=== PATIENT | female | born 1990 | race Caucasian/White ===

== ENCOUNTER 2016-11-01 07:00 | Inpatient (IN) | payer BC, MEDICAID, OTHER ==
[~2016-11-01] VITALS: Ht 163.8 cm; Wt 117.9 kg
[2016-11-01] VITALS (47 sets, daily range): BP systolic 99–146; BP diastolic 53–77
[~2016-11-01 07:00] MED LIST: PNV1TABL9 PO
[2016-11-01] MEDS ORDERED: MINERAL OIL CONCENTRATE 99.9% 15 ML UDC TOP PRN (07:30)
[2016-11-01] MEDS ORDERED: TERBUTALINE INJ 1 MG/ML (BRETHINE) AMP SC PRN (07:30)
[2016-11-01] MEDS ORDERED: MISOPROSTOL 100 MCG (CYTOTEC) TAB PO NR (07:30)
[2016-11-01 08:30] LABS: BASOPHILS % (AUTO) 0 % (0-10); EOSINOPHILS # (AUTO) 0.2 10^3/uL (0.0-0.3); EOSINOPHILS % (AUTO) 1 % (0-10); LYMPHOCYTES # (AUTO) 2.6 X 10^3 (1.0-4.0); LYMPHOCYTES % (AUTO) 21 % (12-44); MEAN CORPUSCULAR HEMOGLOBIN 29 PG (25-34); MEAN CORPUSCULAR HGB CONC 33 G/DL (32-36); MEAN CORPUSCULAR VOLUME 86 FL (80-99); MEAN PLATELET VOLUME 11.9 FL (7.4-10.4); MONOCYTES % (AUTO) 8 % (0-12); NEUTROPHILS # (AUTO) 8.6 X 10^3 (1.8-7.8); NEUTROPHILS % (AUTO) 69 % (42-75); PLATELET COUNT 217 10^3/uL (130-400); RED BLOOD COUNT 4.24 10^6/uL (4.35-5.85); WHITE BLOOD COUNT 12.4 10^3/uL (4.3-11.0)
[2016-11-01] MEDS: D5 LR IV SOLUTION 1,000 ML IV SCH (08:36)
[2016-11-01] MEDS ORDERED: FLU TRIvalent (5 YOA+) 2016-17 (AFLURIA) 0.5 ML IM ONE (09:15)
[2016-11-01 09:16] LABS: BILIRUBIN,URINE NEGATIVE (NEGATIVE); KETONES,URINE NEGATIVE (NEGATIVE); LEUKOCYTE ESTERASE ,URINE 3+ (NEGATIVE); NITRITE,URINE NEGATIVE (NEGATIVE); PH,URINE 6.5 (5-9); PROTEIN,URINE NEGATIVE (NEGATIVE); UROBILINOGEN,URINE NORMAL (NORMAL)
[2016-11-01 09:30] LABS: SQUAMOUS EPITHELIAL CELL,UR 25-50 /HPF; WBC,URINE 50-100 /HPF
[2016-11-01] MEDS ORDERED: ACYC800T PO (10:41)
[2016-11-01] MEDS ORDERED: OXYTOCIN/NORMAL SALINE 500 ML IV SCH (12:44)
--- NOTE | 2016-11-01 12:45 | Progress Note-Standard ---
Standard Progress Note Progress Notes/Assess & Plan Progress/Assessment & Plan AROM clear /-2 well being reassuring Irregular contractions. Start TITI Orellana DO Nov 01, 2016 12:45
[2016-11-01] MEDS ORDERED: LIDOCAINE/EPI 1%-1:200,000 (XYLOCAINE) 30 ML VIAL ONE (13:05)
[2016-11-01] MEDS: fentaNYL INJECTION 100 MCG/2 ML AMP IVP PRN ×2 (13:13→16:24)
[2016-11-01] MEDS ORDERED: CATHETER FLUSH 10 ML SYR IV SCH (14:00)
[2016-11-01] MEDS ORDERED: SUFENTA 0.6MCG/ML BUPIVA 0.125 100 ML ONE (16:30)
[2016-11-01] MEDS ORDERED: LACTATED RINGERS 1,000 ML IV ONE ×2 (16:30→17:45)
[2016-11-01] MEDS ORDERED: diphenhydrAMINE 50 MG/ML INJ (BENADRYL) IV PRN (17:45)
[2016-11-01] MEDS ORDERED: fentaNYL INJECTION 100 MCG/2 ML AMP INJ ONE (17:45)
[2016-11-01] MEDS ORDERED: NALOXONE 0.4 MG/ML 1 ML (NARCAN) VIAL IV PRN ×2 (17:45)
[2016-11-01] MEDS ORDERED: EPIDURAL (SUFENTA 0.6MCG/ML BUPIVA 0.125%) 100 ML BAG EPI PRN (17:45)
[2016-11-01] MEDS ORDERED: METOCLOPRAMIDE INJ 10 MG/2 ML (REGLAN) IV PRN (17:45)
[2016-11-01] MEDS ORDERED: ONDANSETRON 4 MG/2 ML (SDV) Z0FRAN IV PRN (17:45)
[2016-11-01] MEDS ORDERED: ONDANSETRON 4 MG/2 ML (SDV) Z0FRAN IVP ONE (18:00)
[2016-11-01] MEDS ORDERED: ceFAZolin 2 GM/50 ML NS 50 ML IV ONE (23:17)
[2016-11-01] MEDS ORDERED: MISOPROSTOL 200 MCG (CYTOTEC) TABLET ONE ×2 (23:26→23:39)
[2016-11-01 23:34] LABS: BASOPHILS % (AUTO) 0 % (0-10); EOSINOPHILS % (AUTO) 0 % (0-10); LYMPHOCYTES # (AUTO) 2.3 X 10^3 (1.0-4.0); LYMPHOCYTES % (AUTO) 15 % (12-44); MEAN CORPUSCULAR HEMOGLOBIN 29 PG (25-34); MEAN CORPUSCULAR HGB CONC 33 G/DL (32-36); MEAN CORPUSCULAR VOLUME 87 FL (80-99); MEAN PLATELET VOLUME 11.6 FL (7.4-10.4); MONOCYTES # (AUTO) 1.2 X 10^3 (0.0-1.0); MONOCYTES % (AUTO) 8 % (0-12); NEUTROPHILS # (AUTO) 11.8 X 10^3 (1.8-7.8); NEUTROPHILS % (AUTO) 77 % (42-75); PLATELET COUNT 224 10^3/uL (130-400); RED BLOOD COUNT 3.69 10^6/uL (4.35-5.85); RED CELL DISTRIBUTION WIDTH 15.1 % (10.0-14.5); WHITE BLOOD COUNT 15.3 10^3/uL (4.3-11.0)
[2016-11-01] MEDS ORDERED: fentaNYL INJECTION 100 MCG/2 ML AMP ONE (23:35)
[2016-11-01] MEDS ORDERED: proPOfol 200 MG/20 ML (DIPRIVAN) VIAL IV ONE (23:35)
[2016-11-01] MEDS ORDERED: LIDOCAINE PF 2% 10 ML (XYLOCAINE) AMP ONE (23:35)
[2016-11-01] MEDS ORDERED: SUCCINYLCHOLINE INJ 100 MG/5 ML SYR ONE (23:35)
[2016-11-01] MEDS ORDERED: SEVOFLURANE (ULTANE) 15 ML INHAL SOLN ONE (23:35)
[2016-11-01] MEDS ORDERED: MIDAZOLAM 2 MG/2 ML (VERSED) VIAL ONE (23:36)
[2016-11-01] MEDS ORDERED: NS IV 1000 ML 1,000 ML ONE (23:46)
[2016-11-01] MEDS ORDERED: PHENYLEPHRINE 100 MCG/ML 10 ML (ANESTHESIA) SYR ONE (23:54)
[2016-11-02] VITALS (13 sets, daily range): BP systolic 103–128; BP diastolic 53–72
[2016-11-02] MEDS ORDERED: OXYTOCIN/NORMAL SALINE 500 ML IV SCH (00:21)
--- NOTE | 2016-11-02 00:24 | OB Labor & Delivery Record ---
Vag Delivery Note Vag Delivery Note Date of Delivery: 11/02/16 Preoperative Diagnosis: Pilar Sylvester is a (26 /Para 3/2 with history of delivery, advanced cervical dilation and distance from hospital. She was induced at 39 weeks due to above. Postoperative Diagnosis: Same Surgeon: TITI WILKINSON Anesthesia: epidurla Delivery Type: vaginal Findings: Viable male, apgars 7/9 BW pending Lacerations: Intact placenta with 3 vessel cord. No nuchal cord, body cord or shoulder dystocia Estimated Blood Loss: 750 ml Complications: uterine inversion Condition: to OR Description of Procedure: The patient was admitted for induction of labor due to advanced cervical dilation and distance of greater than 45 minutes from the hospital, with an additional history of rapid deliveries.. She was admitted and informed consent was obtained. Her labor course was remarkable for a ROM and Pitocin. She progressed to complete dilatation and began to push. She was then set up for delivery. The 's head was delivered atraumatically in the OA position. The shoulders and remainder of the infant's body were then delivered without difficulty. Upon delivery, the head was held below the level of the perineum and the mouth and nares were bulb suctioned. The cord was doubly clamped and cut and the infant was handed off to the pediatric staff. The placenta did not deliver within the first 15 minutes. I did not do any daily maneuver, just gentle traction on the cord. I noted that the placenta was not and then all of a sudden noted what appeared to be a uterine mass or placental mass. With palpation I determined that it was the uterus and the uterus was inverting. At this point I attempted to place the uterus back in the proper position but was unable to do so. The patient was given 4 g slow IV push of magnesium sulfate to help relax the uterus. I then attempted to replace the uterus again and the patient had nausea and vomiting and at this point had a gush of blood and the placenta detached. There was large amount of blood on the floor. At this point it was decided to go to the OR for replacement of the uterine inversion. She was typed and crossed 2 units. She had approximately 750 mL of blood loss or more in the room. The procedure is dictated under separate cover. The baby was stable and taken to the nursery. As we were taking her to the OR the patient stated "I think this is what happens to me last time. We have previously discussed this with a previous , miscarriage, but did not have the records and she was not really sure what happened. But her stated that this was very similar to what happened before. Consents were signed and she was taken to the operating room. Vitals - Labs Vital Signs - I&O Vital Signs Date Time Temp Pulse Resp B/P Pulse Ox O2 Delivery O2 Flow Rate FiO2 11/01/16 19:00 65 18 124/67 98 Room Air 11/01/16 18:45 67 18 122/61 95 Room Air 11/01/16 18:30 69 18 117/62 95 Room Air 11/01/16 18:15 68 18 114/59 95 Room Air 11/01/16 18:00 80 18 114/53 99 Room Air 11/01/16 17:45 111 18 113/59 100 Room Air 11/01/16 17:40 87 18 106/57 99 Room Air 11/01/16 17:35 78 18 99/61 100 Room Air 11/01/16 17:30 72 18 100 Room Air 11/01/16 17:20 77 18 122/58 100 Room Air 11/01/16 17:15 83 18 137/65 100 Room Air 11/01/16 17:10 90 18 137/65 100 Room Air 11/01/16 17:00 18 Room Air 11/01/16 16:45 77 18 137/60 Room Air 11/01/16 16:30 86 18 138/71 Room Air 11/01/16 16:15 86 18 136/72 Room Air 11/01/16 16:00 80 18 127/69 Room Air 11/01/16 15:45 77 18 130/71 Room Air 11/01/16 15:30 75 18 142/67 Room Air 11/01/16 15:15 75 18 121/61 Room Air 11/01/16 15:00 98.4 75 18 122/63 Room Air 11/01/16 14:45 75 18 135/69 Room Air 11/01/16 14:30 75 18 112/68 Room Air 11/01/16 14:15 77 18 111/69 Room Air 11/01/16 13:45 80 18 116/62 Room Air 11/01/16 13:30 78 118/63 Room Air 11/01/16 12:40 98.3 78 18 115/63 Room Air 11/01/16 11:35 80 18 133/77 Room Air 11/01/16 10:35 78 18 127/77 Room Air 11/01/16 10:10 98.9 11/01/16 09:35 70 18 120/71 Room Air 11/01/16 08:35 98.9 81 18 130/75 Room Air 11/01/16 07:40 93 18 112/66 Room Air Labs Laboratory Tests 11/01/16 07:45: Urine Bacteria MODERATEH, Urine Bilirubin NEGATIVE, Urine Casts NONE, Urine Clarity CLEAR, Urine Color YELLOW, Urine Crystals NONE, Urine Culture Indicated NO, Urine Glucose (UA) NEGATIVE, Urine Ketones NEGATIVE, Urine Leukocyte Esterase 3+H, Urine Mucus NEGATIVE, Urine Nitrite NEGATIVE, Urine Protein NEGATIVE, Urine RBC NONE, Urine RBC (Auto) 1+H, Urine Specific [place] 1.015L, Urine Squamous Epithelial Cells 25-50H, Urine Urobilinogen NORMAL, Urine WBC 50- 100H, Urine pH 6.5 11/01/16 08:05: Basophils # (Auto) 0.0, Basophils (%) (Auto) 0, Eosinophils # (Auto) 0.2, Eosinophils (%) (Auto) 1, Hematocrit 36, Hemoglobin 12.1, Lymphocytes # (Auto) 2.6, Lymphocytes (%) (Auto) 21, Mean Corpuscular Hemoglobin 29, Mean Corpuscular Hemoglobin Concent 33, Mean Corpuscular Volume 86, Mean Platelet Volume 11.9H, Monocytes # (Auto) 1.0, Monocytes (%) (Auto) 8, Neutrophils # ( Auto) 8.6H, Neutrophils (%) (Auto) 69, Platelet Count 217, Red Blood Count 4.24L , Red Cell Distribution Width 15.0H, White Blood Count 12.4H 11/01/16 23:20: Basophils # (Auto) 0.0, Basophils (%) (Auto) 0, Eosinophils # (Auto) 0.0, Eosinophils (%) (Auto) 0, Hematocrit 32L, Hemoglobin 10.5L, Lymphocytes # (Auto ) 2.3, Lymphocytes (%) (Auto) 15, Mean Corpuscular Hemoglobin 29, Mean Corpuscular Hemoglobin Concent 33, Mean Corpuscular Volume 87, Mean Platelet Volume 11.6H, Monocytes # (Auto) 1.2H, Monocytes (%) (Auto) 8, Neutrophils # ( Auto) 11.8H, Neutrophils (%) (Auto) 77H, Platelet Count 224, Red Blood Count 3.69L, Red Cell Distribution Width 15.1H, White Blood Count 15.3H TITI WILKINSON DO Nov 02, 2016 00:24
--- NOTE | 2016-11-02 00:25 | Operative Report ---
Operative Report Date of Procedure/Surgery Nov 02, 2016 Post-Operative Diagnosis uterine inversion Procedure Performed Name of Procedure: replacement of uterine inversion Description of Procedure Anesthesia Type: General Estimated blood loss (mL): 1750 Indications uterine inversion, post hemorrhage Procedure Patient had delivery complicated by uterine inversion. I attempted to leave the placenta intact, but the patient had emesis and the placenta became detached. She also had large gush of blood over the floor (approximately 500 ml +). I could not easily replaced the placenta. I had her given 4 grams of magnesium IV to help to relax the uterus, but this did not help with the replacement of the uterus so we decided to go to the operating room. The patient was given preoperative antibiotics and then taken to the operating room where she was placed under general anesthesia. She was then prepped and draped in the usual sterile fashion in the dorsal lithotomy position. A Toney catheter was placed in the bladder. When she was completely relaxed and the blood was cleaned from the vault, I was then able to gently put pressure on the uterine fundus and then eventually was able to reduce the inversion. Initially this was difficult because there was some tightening around my hands but I was able to do this successfully. The uterus relaxed and allowed the inversion to occur. There was excessive blood loss, but her vitals were stable did not get blood during the procedure. We did place 800 g of rectal Cytotec. The Toney was kept in the bladder and she was taken to the recovery room in stable condition. Allergies and Home Medications Allergies Coded Allergies: No Known Drug Allergies (Unverified , 12/01/14) Home Medications Acyclovir 800 Mg Tablet 1,000 MG PO DAILY (Reported) Ferrous Sulfate 325 Mg Tablet #120 325 MG PO BID WITH MEALS Prescribed by: TITI WILKINSON on 11/03/16921 Hydrocodone/Acetaminophen 1 Each Tablet #15 1-2 TAB PO Q4H PRN PRN MODERATE TO SEVERE PAIN Prescribed by: TITI WILKINSON on 11/03/16921 Ibuprofen 600 Mg Tablet #40 600 MG PO Q6H Prescribed by: TITI WILKINSON on 11/03/16921 Pnv Cmb#21/Iron/Folic Acid 1 Each Tablet #30 1 EACH PO DAILY Prescribed by: SUDHA TREVIÑO on 12/04/142107 TITI WILKINSON DO Nov 02, 2016 00:25
[2016-11-02] MEDS ORDERED: KETOROLAC 30 MG/ML VIAL IVP SCH (00:30)
[2016-11-02] MEDS ORDERED: HYDROcodone/APAP 5 MG/325 MG (LORTAB) TAB PO PRN (00:30)
[2016-11-02] MEDS ORDERED: BENZOCAINE/MENTHOL (DERMOPLAST) 56 ML CAN TP PRN (00:30)
[2016-11-02] MEDS ORDERED: WITCH HAZEL(TUCKS) 40 EA JAR TOP PRN (00:30)
[2016-11-02] MEDS ORDERED: TETANUS,DIPTH,PERTUSS P/F (BOOSTRIX) 0.5 ML VIAL IM ONE (00:30)
[2016-11-02] MEDS ORDERED: MEASLES,MUMPS,RUBELLA 1 EA INJ SQ ONE (00:30)
[2016-11-02] MEDS ORDERED: ISOFLURANE (FORANE) 15 ML/15 MIN INHALATION ONE (00:31)
[2016-11-02 00:47] LABS: MEAN PLATELET VOLUME 11.4 FL (7.4-10.4); RED BLOOD COUNT 3.07 10^6/uL (4.35-5.85); RED CELL DISTRIBUTION WIDTH 14.9 % (10.0-14.5)
[2016-11-02 00:52] LABS: WHITE BLOOD COUNT 30.1 10^3/uL (4.3-11.0)
[2016-11-02] MEDS: IBUPROFEN 600 MG (MOTRIN) TAB PO SCH ×3 (01:37→18:00)
[2016-11-02] MEDS: D5 LR IV SOLUTION 1,000 ML IV SCH (05:10)
[2016-11-02] MEDS ORDERED: CATHETER FLUSH 10 ML SYR IV SCH (06:00)
[2016-11-02 06:17] LABS: BASOPHILS % (AUTO) 0 % (0-10); EOSINOPHILS % (AUTO) 0 % (0-10); LYMPHOCYTES # (AUTO) 3.2 X 10^3 (1.0-4.0); LYMPHOCYTES % (AUTO) 13 % (12-44); MEAN CORPUSCULAR HEMOGLOBIN 29 PG (25-34); MEAN CORPUSCULAR HGB CONC 33 G/DL (32-36); MEAN CORPUSCULAR VOLUME 88 FL (80-99); MEAN PLATELET VOLUME 11.9 FL (7.4-10.4); MONOCYTES # (AUTO) 1.3 X 10^3 (0.0-1.0); MONOCYTES % (AUTO) 5 % (0-12); NEUTROPHILS # (AUTO) 20.1 X 10^3 (1.8-7.8); NEUTROPHILS % (AUTO) 82 % (42-75); PLATELET COUNT 191 10^3/uL (130-400); RED BLOOD COUNT 2.63 10^6/uL (4.35-5.85); RED CELL DISTRIBUTION WIDTH 14.8 % (10.0-14.5); WHITE BLOOD COUNT 24.6 10^3/uL (4.3-11.0)
--- NOTE | 2016-11-02 07:36 | Progress Note-Pre Operative ---
Pre-Operative Progress Note H&P Reviewed The H&P was reviewed, patient examined and no changes noted. Date H&P Reviewed: Nov 02, 2016 Time H&P Reviewed: 07:30 Pre-Operative Diagnosis: Missed Ab TITI WILKINSON DO Nov 02, 2016 07:36
[2016-11-02] MEDS: DOCUSATE SODIUM 100 MG (COLACE) CAP PO SCH (08:52)
[2016-11-02] MEDS ORDERED: FERROUS SULF 325 MG (IRON) TAB PO SCH (09:00)
[2016-11-02] MEDS: PRENATAL VITAMIN 1 EA TAB PO SCH (09:05)
--- NOTE | 2016-11-02 09:48 | Postpartum Progress Note ---
Note Note Day # 1 s/p and replacement of uterine inversion. PPH Subjective: Patient is without complaints. Ambulating, voiding. Tolerating a regular diet without nausea or vomiting. Normal lochia. Pain is well controlled with oral pain medications. Objective: Laboratory Tests Test 11/01/16 23:20 11/02/16 00:40 11/02/16 05:50 Range/Units Basophils # (Auto) 0.0 0.0 0.0-0.1 10^3/uL Basophils (%) (Auto) 0 0 0-10 % Eosinophils # (Auto) 0.0 0.0 0.0-0.3 10^3/uL Eosinophils (%) (Auto) 0 0 0-10 % Hematocrit 32 L 27 L 23 L 35-52 % Hemoglobin 10.5 L 8.6 L 7.5 L 11.5-16.0 G/DL Lymphocytes # (Auto) 2.3 3.2 1.0-4.0 X 10^3 Lymphocytes (%) (Auto) 15 13 12-44 % Mean Corpuscular Hemoglobin 29 28 29 25-34 PG Mean Corpuscular Hemoglobin Concent 33 32 33 32-36 G/DL Mean Corpuscular Volume 87 88 88 80-99 FL Mean Platelet Volume 11.6 H 11.4 H 11.9 H 7.4-10.4 FL Monocytes # (Auto) 1.2 H 1.3 H 0.0-1.0 X 10^3 Monocytes (%) (Auto) 8 5 0-12 % Neutrophils # (Auto) 11.8 H 20.1 H 1.8-7.8 X 10^3 Neutrophils (%) (Auto) 77 H 82 H 42-75 % Platelet Count 224 215 191 130-400 10^3/uL Red Blood Count 3.69 L 3.07 L 2.63 L 4.35-5.85 10^6/uL Red Cell Distribution Width 15.1 H 14.9 H 14.8 H 10.0-14.5 % White Blood Count 15.3 H 30.1 *H 24.6 H 4.3-11.0 10^3/uL Vital Signs 11/01/16 11/02/16 23:31 08:54 Temp 100.3 Pulse 90 Resp 18 B/P 109/72 Pulse Ox 99 O2 Delivery Room Air O2 Flow Rate 10.00 Physical Exam: General - Alert and oriented, no apparent distress Abdomen - Soft, appropriately tender to palpation, non-distended, fundus firm at umbilicus Extremities - no edema, negative Chuy's bilaterally Assessment: 1. post- day # 1, status post spontaneous vaginal delivery. Recovering well, hemodynamically stable 2. Uterine inversion s/p OR replacement 3. Post hemorrhage due to 2. 4. Acute blood loss anemia [] Plan: Routine care. Encourage breast feeding. Encourage ambulation. Ferrous sulfate supplementation. Patient is currently hemodynamically stable that she had a large drop in hemoglobin. We will continue to watch her vitals and determine if transfusion is necessary. Vitals - Labs Vital Signs - I&O Vital Signs Date Time Temp Pulse Resp B/P Pulse Ox O2 Delivery O2 Flow Rate FiO2 11/02/16 08:54 100.3 90 18 109/72 99 Room Air 11/02/16 06:35 83 123/68 11/02/16 04:25 98.6 88 116/64 97 Room Air 11/02/16 01:40 97.4 89 118/66 97 Room Air 11/01/16 23:31 82 114/58 100 Non Rebreather 10.00 11/01/16 23:24 88 89 Room Air 11/01/16 23:16 108 120/53 97 Room Air 11/01/16 23:08 107 99 Room Air 11/01/16 23:01 96 146/66 Room Air 11/01/16 22:45 95 18 117/61 100 Room Air 11/01/16 22:30 86 18 116/59 99 Room Air 11/01/16 22:15 101 18 119/77 99 Room Air 11/01/16 22:00 75 18 118/60 98 Room Air 11/01/16 21:45 73 18 120/58 98 Room Air 11/01/16 21:30 78 18 136/74 98 Room Air 11/01/16 21:15 73 18 123/59 99 Room Air 11/01/16 21:00 71 18 130/64 98 Room Air 11/01/16 20:45 75 18 130/59 100 Room Air 11/01/16 20:30 81 18 122/58 100 Room Air 11/01/16 20:15 71 18 122/66 98 Room Air 2/23/17 20:00 74 18 124/71 98 Room Air 11/01/16 19:45 70 18 125/67 97 Room Air 11/01/16 19:30 97.4 67 18 127/65 97 Room Air 11/01/16 19:15 67 18 96 Room Air 11/01/16 19:00 65 18 124/67 98 Room Air 11/01/16 18:45 67 18 122/61 95 Room Air 11/01/16 18:30 69 18 117/62 95 Room Air 11/01/16 18:15 68 18 114/59 95 Room Air 11/01/16 18:00 80 18 114/53 99 Room Air 11/01/16 17:45 111 18 113/59 100 Room Air 11/01/16 17:40 87 18 106/57 99 Room Air 11/01/16 17:35 78 18 99/61 100 Room Air 11/01/16 17:30 72 18 100 Room Air 11/01/16 17:20 77 18 122/58 100 Room Air 11/01/16 17:15 83 18 137/65 100 Room Air 11/01/16 17:10 90 18 137/65 100 Room Air 11/01/16 17:00 18 Room Air 11/01/16 16:45 77 18 137/60 Room Air 11/01/16 16:30 86 18 138/71 Room Air 11/01/16 16:15 86 18 136/72 Room Air 11/01/16 16:00 80 18 127/69 Room Air 11/01/16 15:45 77 18 130/71 Room Air 11/01/16 15:30 75 18 142/67 Room Air 11/01/16 15:15 75 18 121/61 Room Air 11/01/16 15:00 98.4 75 18 122/63 Room Air 11/01/16 14:45 75 18 135/69 Room Air 11/01/16 14:30 75 18 112/68 Room Air 11/01/16 14:15 77 18 111/69 Room Air 11/01/16 13:45 80 18 116/62 Room Air 11/01/16 13:30 78 118/63 Room Air 11/01/16 12:40 98.3 78 18 115/63 Room Air 11/01/16 11:35 80 18 133/77 Room Air 11/01/16 10:35 78 18 127/77 Room Air 11/01/16 10:10 98.9 I & O 11/02/16 07:00 Intake Total 1100 ml Output Total 1975 ml Balance -875 ml Labs Laboratory Tests 11/01/16 23:20: Basophils # (Auto) 0.0, Basophils (%) (Auto) 0, Eosinophils # (Auto) 0.0, Eosinophils (%) (Auto) 0, Hematocrit 32L, Hemoglobin 10.5L, Lymphocytes # (Auto ) 2.3, Lymphocytes (%) (Auto) 15, Mean Corpuscular Hemoglobin 29, Mean Corpuscular Hemoglobin Concent 33, Mean Corpuscular Volume 87, Mean Platelet Volume 11.6H, Monocytes # (Auto) 1.2H, Monocytes (%) (Auto) 8, Neutrophils # ( Auto) 11.8H, Neutrophils (%) (Auto) 77H, Platelet Count 224, Red Blood Count 3.69L, Red Cell Distribution Width 15.1H, White Blood Count 15.3H 11/02/16 00:40: Hematocrit 27L, Hemoglobin 8.6L, Mean Corpuscular Hemoglobin 28, Mean Corpuscular Hemoglobin Concent 32, Mean Corpuscular Volume 88, Mean Platelet Volume 11.4H, Platelet Count 215, Red Blood Count 3.07L, Red Cell Distribution Width 14.9H, White Blood Count 30.1*H 11/02/16 05:50: Basophils # (Auto) 0.0, Basophils (%) (Auto) 0, Eosinophils # (Auto) 0.0, Eosinophils (%) (Auto) 0, Hematocrit 23L, Hemoglobin 7.5L, Lymphocytes # (Auto) 3.2, Lymphocytes (%) (Auto) 13, Mean Corpuscular Hemoglobin 29, Mean Corpuscular Hemoglobin Concent 33, Mean Corpuscular Volume 88, Mean Platelet Volume 11.9H, Monocytes # (Auto) 1.3H, Monocytes (%) (Auto) 5, Neutrophils # ( Auto) 20.1H, Neutrophils (%) (Auto) 82H, Platelet Count 191, Red Blood Count 2.63L, Red Cell Distribution Width 14.8H, White Blood Count 24.6H Microbiology 11/01/16 Urine Culture - Preliminary, Resulted Yeast Species TITI WILKINSON DO Nov 02, 2016 09:48
[2016-11-02] MEDS ORDERED: FERROUS SULF 325 MG (IRON) TAB PO ONE (10:50)
[2016-11-02] MEDS: FERROUS SULF 325 MG (IRON) TAB PO SCH ×2 (10:56→19:32)
--- NOTE | 2016-11-02 12:22 | Anesthesia-General Post-Op ---
General Patient Condition Mental Status/LOC: Same as Preop Cardiovascular: Satisfactory Nausea/Vomiting: Absent Respiratory: Satisfactory Pain: Controlled Complications: Absent Post Op Complications Complications None Follow Up Care/Instructions Patient Instructions None needed. Anesthesia/Patient Condition Patient Condition Patient is doing well, no complaints, stable vital signs, no apparent adverse anesthesia problems. No complications reported per nursing. JELLY CREWS CRNA Nov 02, 2016 12:22
[2016-11-02 12:27] LABS: BASOPHILS % (AUTO) 0 % (0-10); EOSINOPHILS % (AUTO) 0 % (0-10); LYMPHOCYTES % (AUTO) 15 % (12-44); MEAN CORPUSCULAR HEMOGLOBIN 29 PG (25-34); MEAN CORPUSCULAR HGB CONC 33 G/DL (32-36); MEAN CORPUSCULAR VOLUME 88 FL (80-99); MONOCYTES # (AUTO) 1.6 X 10^3 (0.0-1.0); MONOCYTES % (AUTO) 8 % (0-12); NEUTROPHILS # (AUTO) 15.1 X 10^3 (1.8-7.8); NEUTROPHILS % (AUTO) 77 % (42-75); PLATELET COUNT 165 10^3/uL (130-400); RED BLOOD COUNT 2.34 10^6/uL (4.35-5.85); WHITE BLOOD COUNT 19.7 10^3/uL (4.3-11.0)
[2016-11-02] MEDS ORDERED: ACETAMINOPHEN 500 MG TAB (TYLENOL) PO ONE ×2 (13:00→17:00)
[2016-11-02] MEDS ORDERED: NS IV 500 ML 500 ML IV ONE (13:00)
[2016-11-02] MEDS ORDERED: diphenhydrAMINE 25 MG TAB (BENADRYL) PO ONE ×3 (13:00→17:00)
[2016-11-02] MEDS ORDERED: ACETAMINOPHEN 500 MG TAB (TYLENOL) ONE (17:38)
[2016-11-03 00:34] VITALS: BP 127/61
[2016-11-03] MEDS: D5 LR IV SOLUTION 1,000 ML IV SCH ×3 (00:34→00:47)
[2016-11-03] MEDS: DOCUSATE SODIUM 100 MG (COLACE) CAP PO SCH ×2 (00:34→08:44)
[2016-11-03] MEDS: IBUPROFEN 600 MG (MOTRIN) TAB PO SCH ×4 (00:34→15:17)
[2016-11-03 04:00] VITALS: BP 109/60
[2016-11-03 05:34] LABS: BASOPHILS % (AUTO) 0 % (0-10); EOSINOPHILS # (AUTO) 0.3 10^3/uL (0.0-0.3); EOSINOPHILS % (AUTO) 2 % (0-10); LYMPHOCYTES # (AUTO) 4.2 X 10^3 (1.0-4.0); LYMPHOCYTES % (AUTO) 28 % (12-44); MEAN CORPUSCULAR HEMOGLOBIN 29 PG (25-34); MEAN CORPUSCULAR HGB CONC 32 G/DL (32-36); MEAN CORPUSCULAR VOLUME 89 FL (80-99); MONOCYTES # (AUTO) 1.4 X 10^3 (0.0-1.0); MONOCYTES % (AUTO) 9 % (0-12); NEUTROPHILS # (AUTO) 8.9 X 10^3 (1.8-7.8); NEUTROPHILS % (AUTO) 61 % (42-75); PLATELET COUNT 162 10^3/uL (130-400); RED BLOOD COUNT 2.63 10^6/uL (4.35-5.85); RED CELL DISTRIBUTION WIDTH 15.3 % (10.0-14.5); WHITE BLOOD COUNT 14.7 10^3/uL (4.3-11.0)
[2016-11-03] MEDS: FERROUS SULF 325 MG (IRON) TAB PO SCH (08:44)
[2016-11-03 08:45] VITALS: BP 120/61
[2016-11-03] MEDS: PRENATAL VITAMIN 1 EA TAB PO SCH (08:45)
[2016-11-03] MEDS ORDERED: FUROSEMIDE 40 MG/4 ML INJ (LASIX) IVP ONE (09:00)
--- NOTE | 2016-11-03 09:01 | Postpartum Progress Note ---
Note Note Day # 2 s/p and uterine inversion with PP hemorrhage Subjective: Patient is without complaints. Ambulating, voiding. Tolerating a regular diet without nausea or vomiting. Normal lochia. Pain is well controlled with oral pain medications. breast feeding. She does not have tachycardia. She is not dizzy. She is tolerating anemia. Objective: Vital Sign - Last 12Hours 11/02/16 11/03/16 11/03/16 21:25 00:34 04:00 Temp 98.3 98.5 98.3 Pulse 92 92 90 Resp 18 18 18 B/P 106/57 127/61 109/60 Pulse Ox 98 98 97 O2 Delivery Room Air Room Air Room Air Intake and Output 11/03/16 00:00 Intake Total 2200 ml Output Total 200 ml Balance 2000 ml Laboratory Tests Test 11/01/16 07:45 11/01/16 08:05 11/01/16 23:20 11/02/16 00:40 Range/Units Urine Bacteria MODERATE H /HPF Urine Bilirubin NEGATIVE NEGATIVE Urine Casts NONE /LPF Urine Clarity CLEAR Urine Color YELLOW Urine Crystals NONE /LPF Urine Culture Indicated NO Urine Glucose (UA) NEGATIVE NEGATIVE Urine Ketones NEGATIVE NEGATIVE Urine Leukocyte Esterase 3+ H NEGATIVE Urine Mucus NEGATIVE /LPF Urine Nitrite NEGATIVE NEGATIVE Urine Protein NEGATIVE NEGATIVE Urine RBC NONE /HPF Urine RBC (Auto) 1+ H NEGATIVE Urine Specific [place] 1.015 L 1.016-1.022 Urine Squamous Epithelial Cells 25-50 H /HPF Urine Urobilinogen NORMAL NORMAL MG/DL Urine WBC 50-100 H /HPF Urine pH 6.5 5-9 Basophils # (Auto) 0.0 0.0 0.0-0.1 10^3/uL Basophils (%) (Auto) 0 0 0-10 % Eosinophils # (Auto) 0.2 0.0 0.0-0.3 10^3/uL Eosinophils (%) (Auto) 1 0 0-10 % Hematocrit 36 32 L 27 L 35-52 % Hemoglobin 12.1 10.5 L 8.6 L 11.5-16.0 G/DL Lymphocytes # (Auto) 2.6 2.3 1.0-4.0 X 10^3 Lymphocytes (%) (Auto) 21 15 12-44 % Mean Corpuscular Hemoglobin 29 29 28 25-34 PG Mean Corpuscular Hemoglobin Concent 33 33 32 32-36 G/DL Mean Corpuscular Volume 86 87 88 80-99 FL Mean Platelet Volume 11.9 H 11.6 H 11.4 H 7.4-10.4 FL Monocytes # (Auto) 1.0 1.2 H 0.0-1.0 X 10^3 Monocytes (%) (Auto) 8 8 0-12 % Neutrophils # (Auto) 8.6 H 11.8 H 1.8-7.8 X 10^3 Neutrophils (%) (Auto) 69 77 H 42-75 % Platelet Count 217 224 215 130-400 10^3/uL Red Blood Count 4.24 L 3.69 L 3.07 L 4.35-5.85 10^6/uL Red Cell Distribution Width 15.0 H 15.1 H 14.9 H 10.0-14.5 % White Blood Count 12.4 H 15.3 H 30.1 *H 4.3-11.0 10^3/uL Test 11/02/16 05:50 11/02/16 12:20 11/03/16 05:15 Range/Units Basophils # (Auto) 0.0 0.0 0.0 0.0-0.1 10^3/uL Basophils (%) (Auto) 0 0 0 0-10 % Eosinophils # (Auto) 0.0 0.0 0.3 0.0-0.3 10^3/uL Eosinophils (%) (Auto) 0 0 2 0-10 % Hematocrit 23 L 21 L 23 L 35-52 % Hemoglobin 7.5 L 6.7 *L 7.5 L 11.5-16.0 G/DL Lymphocytes # (Auto) 3.2 3.0 4.2 H 1.0-4.0 X 10^3 Lymphocytes (%) (Auto) 13 15 28 12-44 % Mean Corpuscular Hemoglobin 29 29 29 25-34 PG Mean Corpuscular Hemoglobin Concent 33 33 32 32-36 G/DL Mean Corpuscular Volume 88 88 89 80-99 FL Mean Platelet Volume 11.9 H 11.0 H 12.0 H 7.4-10.4 FL Monocytes # (Auto) 1.3 H 1.6 H 1.4 H 0.0-1.0 X 10^3 Monocytes (%) (Auto) 5 8 9 0-12 % Neutrophils # (Auto) 20.1 H 15.1 H 8.9 H 1.8-7.8 X 10^3 Neutrophils (%) (Auto) 82 H 77 H 61 42-75 % Platelet Count 191 165 162 130-400 10^3/uL Red Blood Count 2.63 L 2.34 L 2.63 L 4.35-5.85 10^6/uL Red Cell Distribution Width 14.8 H 15.0 H 15.3 H 10.0-14.5 % White Blood Count 24.6 H 19.7 H 14.7 H 4.3-11.0 10^3/uL Physical Exam: General - Alert and oriented, no apparent distress Abdomen - Soft, appropriately tender to palpation, non-distended, fundus firm at umbilicus Extremities - no edema, negative Chuy's bilaterally Assessment: 1. post- day # 2, status post spontaneous vaginal delivery. Recovering well, hemodynamically stable 2. Uterine inversion status post repair 3 hemorrhage stable 4. Acute blood loss anemia - stable with iron replacement Plan: Routine care. Encourage breast feeding. Encourage ambulation. Ferrous sulfate supplementation. Plan for discharge today Vitals - Labs Vital Signs - I&O Vital Signs Date Time Temp Pulse Resp B/P Pulse Ox O2 Delivery O2 Flow Rate FiO2 11/03/16 04:00 98.3 90 18 109/60 97 Room Air 11/03/16 00:34 98.5 92 18 127/61 98 Room Air 11/02/16 21:25 98.3 92 18 106/57 98 Room Air 11/02/16 20:45 98.9 95 18 117/62 97 11/02/16 20:00 98.7 91 18 110/68 98 Room Air 11/02/16 18:04 98.9 94 18 110/57 99 11/02/16 17:49 96.6 94 18 118/69 11/02/16 17:21 96.6 94 18 118/69 100 11/02/16 14:45 96.7 99 18 128/53 97 11/02/16 14:30 96.9 89 18 125/56 100 11/02/16 12:48 98.5 92 18 103/62 99 Room Air I & O 11/03/16 07:00 Intake Total 3600 ml Output Total 200 ml Balance 3400 ml Labs Laboratory Tests 11/02/16 12:20: Basophils # (Auto) 0.0, Basophils (%) (Auto) 0, Eosinophils # (Auto) 0.0, Eosinophils (%) (Auto) 0, Hematocrit 21L, Hemoglobin 6.7*L, Lymphocytes # (Auto ) 3.0, Lymphocytes (%) (Auto) 15, Mean Corpuscular Hemoglobin 29, Mean Corpuscular Hemoglobin Concent 33, Mean Corpuscular Volume 88, Mean Platelet Volume 11.0H, Monocytes # (Auto) 1.6H, Monocytes (%) (Auto) 8, Neutrophils # ( Auto) 15.1H, Neutrophils (%) (Auto) 77H, Platelet Count 165, Red Blood Count 2.34L, Red Cell Distribution Width 15.0H, White Blood Count 19.7H 11/03/16 05:15: Basophils # (Auto) 0.0, Basophils (%) (Auto) 0, Eosinophils # (Auto) 0.3, Eosinophils (%) (Auto) 2, Hematocrit 23L, Hemoglobin 7.5L, Lymphocytes # (Auto) 4.2H, Lymphocytes (%) (Auto) 28, Mean Corpuscular Hemoglobin 29, Mean Corpuscular Hemoglobin Concent 32, Mean Corpuscular Volume 89, Mean Platelet Volume 12.0H, Monocytes # (Auto) 1.4H, Monocytes (%) (Auto) 9, Neutrophils # ( Auto) 8.9H, Neutrophils (%) (Auto) 61, Platelet Count 162, Red Blood Count 2.63L , Red Cell Distribution Width 15.3H, White Blood Count 14.7H Microbiology 11/01/16 Urine Culture - Preliminary, Resulted Yeast Species TITI WILKINSON DO Nov 03, 2016 09:01
[2016-11-03] MEDS ORDERED: IBUP-1773 PO (09:22)
[2016-11-03] MEDS ORDERED: FERR-74 PO (09:22)
[2016-11-03] MEDS ORDERED: HYDR-3812 PO (09:22)
--- NOTE | 2016-11-03 09:24 | Discharge Inst-Women's Service ---
Discharge Inst-Women's Serv Depart Medication/Instructions New, Converted or Re-Newed RX: RX on Chart Final Diagnosis advanced cervical dilation, third trimester history of delivery vaginal delivery uterine inversion antepartum and acute blood loss anemia hemorrhage Consults/Follow Up Additional Follow Up: Yes (6 weeks) Activity Activity: Activity as Tolerated Driving Instructions: You May Drive NO SMOKING: NO SMOKING Nothing Inside Vagina: No Douching, No [place], No Tampons Diet Discharge Diet: No Restrictions Symptoms to Report to : Swelling Increased, Bleeding Excessive, Pain Increased, Fever Over 101 Degrees F, Vaginal Bleeding Increase, Lightheadedness , Vaginal Discharge Foul For Any Problems or Questions: Contact Your Physician TITI WILKINSON DO Nov 03, 2016 09:24
--- NOTE | 2016-11-03 09:25 | Discharge Summary ---
Diagnosis/Chief Complaint Date of Admission Nov 01, 2016 at 07:17 Date of Discharge Discharge Date: Nov 03, 2016 Admission Diagnosis Admission Diagnosis history of delivery advanced cervical dilation distance from hospital > 45 miles Discharge Diagnosis Same vaginal delivery uterine inversion post hemorrhage acute blood loss anemia Reason Hospital Visit Patient was admitted on 11/01/16 for induction of labor due to history of precipitous delivery and distance from hospital > 45 miles. She has a history of a delivery and received [place] until 37 weeks. She was dilated in the office and therefore planned induction on 11/01/16. Discharge Summary Procedures: Vaginal delivery Epidural Return to surgery, exam under anesthesia with replacement of the uterine inversion. Transfusion of 2 unit packed red blood cells. Discharge Physical Examination Allergies: Coded Allergies: No Known Drug Allergies (Unverified , 12/01/14) Vitals & I&Os 98.8 105/87 General Appearance: Alert, Oriented X3 Respiratory: Clear to Auscultation, Normal Air Movement Cardiovascular: Regular Rate Abdominal: Normal Bowel Sounds Hospital Course Patient was admitted on 11/01/16. induction with Pitocin and AROM. she was 4-5 cm on admission. She had an uncomplicated labor that was slow until 6 cm and then she progressed very rapidly. She had an epidural. The delivery was uncomplicated until the delivery of the placenta. At that time the uterus was noted to be inverting (please see delivery and operative note). I was unable to replace the uterus with conservative management in the room. The placenta detached spontaneously and there was hemorrhage. The patient was take to the OR and once she was put to sleep, I was able to replace the uterus. She had a large hemorrhage and subsequently received 2 units of packed red blood cells. She was given rectal Cytotec and then IV oxytocin postoperatively to help decrease excessive bleeding. Her course was otherwise unremarkable and she was discharged to home. She received po iron after the packed red blood cells. Discharge hemoglobin was 7.5 Labs see noted Pending Labs Discussion & Recommendations see above Discharge Condition at discharge stable Instructions to patient/family Please see electronic discharge instructions given to patient. Discharge Medications Reviewed and agree with Discharge Medication list on patient's Discharge Instruction sheet Clinical Quality Measures DVT/VTE Risk/Contraindication: Risk Factor Score Per Nursin RFS Level Per Nursing on Admit: 1=Low/No VTE PPX TITI WILKINSON DO Nov 03, 2016 9:25 am
[2016-11-03] MEDS ORDERED: FLU TRIvalent (5 YOA+) 2016-17 (AFLURIA) 0.5 ML IM ONE (10:15)
[2016-11-03] MEDS ORDERED: MEASLES,MUMPS,RUBELLA 1 EA INJ ONE (10:24)
[2016-11-03 14:45] VITALS: BP 105/57
[2016-11-03 18:30] VITALS: BP 105/57
== END 2016-11-03 18:30 | disposition home or self-care (01) | DRG 775 ==
LOC: LDRP 07:17
PROVIDERS: ADMIT Obstetrics & Gynecology; ATTEND Obstetrics & Gynecology
PROC: 0WQNXZZ Repair Female Perineum, External Approach (ICD-10-PCS; principal; 2016-11-01)
PROC: 10E0XZZ Delivery of Products of Conception, External Approach (ICD-10-PCS; 2016-11-01)
PROC: 0US9XZZ Reposition Uterus, External Approach (ICD-10-PCS; 2016-11-02)
DX: O70.0 First degree perineal laceration during delivery (principal); O90.81 Anemia of the puerperium; D62 Acute posthemorrhagic anemia; O71.2 Postpartum inversion of uterus; Z3A.39 39 weeks gestation of pregnancy; Z37.0 Single live birth; Z23 Encounter for immunization
CPT/HCPCS: 36415; 81000; 85025; 85027; 86850; 86900; 86901; 86920; 87088; 88307; 90707